=== PATIENT | female | born 1980 | race Caucasian/White ===

== ENCOUNTER 2020-10-05 13:11 | Outpatient (CLI) | payer OTHER ==
[2020-10-25] MEDS ORDERED: ALPR1TAB2 PO ×2 (09:03→09:08)
== END 2020-10-05 23:59 | disposition home or self-care (01) ==
LOC: CFH 13:11
PROVIDERS: ATTEND Physician Assistant Surgical
DX: M19.012 Primary osteoarthritis, left shoulder (principal); M75.52 Bursitis of left shoulder